=== PATIENT | female | born 1955 | race Two or more races ===

== ENCOUNTER → 2019-03-12 14:12 | Outpatient (CLI) | payer OTHER | END | disposition home or self-care (01) | LOC: LAB 14:12 | DX: N20.0 Calculus of kidney (principal) ==

== ENCOUNTER 2019-03-21 08:45 | Outpatient (CLI) | payer OTHER | END 2019-03-21 08:58 | disposition home or self-care (01) | LOC: TOM 08:45 | DX: N32.81 Overactive bladder (principal); R31.0 Gross hematuria; K76.0 Fatty (change of) liver, not elsewhere classified; K44.9 Diaphragmatic hernia without obstruction or gangrene | CPT/HCPCS: 74177; Q9965 ==